=== PATIENT | female | born 1965 | race Caucasian/White ===

== ENCOUNTER 2017-08-25 22:02 | Inpatient (IN) | payer OTHER ==
[~2017-08-25] VITALS: Ht 162.6 cm; Wt 108.5 kg
[~2017-08-25 22:02] MED LIST: AMRIX30 MG PO; B-COMPLEX FOL400 MCG PO; Buspar PO; CALCIUM CITRAT250 MG PO; CANDESARTAN CIL16 MG PO; CRANBERRY500 MG PO; DELTASONE20 MG PO; Depakote PO; EFFEXOR XR150 MG PO; Effexor XR PO; Fioricet,Esgic,Repan PO; Flexeril PO; HYDROCODON-ACE1 EAC8 PO; MAGNESIUM400 M1 PO; METOPROLOL SUCC25 MG PO; MOVANTIK25 MG PO; MULTIVITAMIN1 EAC2 PO; OMEPRAZOLE40 MG PO; OxyCODONE PO; PERCOCET 10/1 TABLET PO; PERCOCET 5/31 TABLET PO; PERCODAN TABLE1 EACH PO; PRILOSEC40 MG PO; PROPRANOLOL HCL40 MG PO; PROVIGIL100 MG PO; Provigil PO; REGLAN10 MG PO; REGLAN5 MG PO; RELPAX20 MG PO; RELPAX40 MG PO; SKELAXIN800 MG PO; SUPER B-50 COM1 EACH PO; TIZANIDINE HCL4 M1 PO; TOPAMAX100 MG PO; TORADOL10 MG PO; TURMERIC 500 M1 EACH PO; Ultram PO; VITAMIN D250000 UNIT PO; ZOFRAN4 MG PO; ZYRTEC10 M3 PO; Zofran PO
[2017-08-26 07:02] VITALS: BP 102/55
[2017-08-26 15:01] VITALS: BP 134/79
[2017-08-26 19:24] VITALS: BP 128/61
[2017-08-26 23:41] VITALS: BP 97/51
[2017-08-27 04:29] VITALS: BP 103/53
[2017-08-27 07:37] VITALS: BP 120/63
[2017-08-27 10:57] VITALS: BP 94/44
[2017-08-27 15:36] VITALS: BP 111/57
[2017-08-27 19:28] VITALS: BP 108/59
[2017-08-27 23:34] VITALS: BP 113/56
[2017-08-28 07:59] VITALS: BP 131/56
[2017-08-28 15:53] VITALS: BP 120/62
[2017-08-29 00:06] VITALS: BP 107/55
[2017-08-29 07:54] VITALS: BP 117/56
[2017-08-29] MEDS ORDERED: GABAPENTIN300 MG PO (08:20)
== END 2017-08-29 14:15 | disposition home or self-care (01) | DRG 455 ==
LOC: ENRESERV 22:02 → 2SOUTH 08-26 05:51 → ENRESERV 08-26 13:22 → 3EAST 08-26 14:47 → 2SOUTH 08-26 15:42 → 3EAST 08-29 14:15
DX: M43.17 Spondylolisthesis, lumbosacral region (principal); M48.07 Spinal stenosis, lumbosacral region; M54.17 Radiculopathy, lumbosacral region; I10 Essential (primary) hypertension; G43.909 Migraine, unspecified, not intractable, without status migrainosus; M79.7 Fibromyalgia; K21.9 Gastro-esophageal reflux disease without esophagitis; K31.84 Gastroparesis; F17.210 Nicotine dependence, cigarettes, uncomplicated; E66.9 Obesity, unspecified; F41.9 Anxiety disorder, unspecified; F32.9 Major depressive disorder, single episode, unspecified; G89.29 Other chronic pain; M25.562 Pain in left knee; Z98.84 Bariatric surgery status; Z88.2 Allergy status to sulfonamides; Z88.6 Allergy status to analgesic agent; Z88.1 Allergy status to other antibiotic agents; Z68.36 Body mass index [BMI] 36.0-36.9, adult
CPT/HCPCS: 72100; 76000; 86850; 86900; 86901; J0330; J0461; J0690; J1100; J1170; J1580; J1885; J2250; J2405; J3010; J3480

== ENCOUNTER 2017-09-02 17:42 | Inpatient (IN) | payer OTHER ==
[~2017-09-02] VITALS: Ht 162.6 cm; Wt 116.9 kg
[~2017-09-02 17:42] MED LIST changes: +GABAPENTIN300 MG PO
[2017-09-02 19:39] LABS: HEMATOCRIT 30.4 % (36.0-46.0); MCH 32.1 PG (29.0-34.0); MCHC 33.9 G/DL (30.0-36.0); MCV 94.7 FL (83-99); RBC DIS.WIDTH-CV 12.7 % (11.8-14.6); RBC DIS.WIDTH-SD 44.4 % (39-53); WHITE BLOOD COUNT 10.6 K/uL (4.1-10.2)
[2017-09-02 19:41] LABS: HEMOGLOBIN 10.3 G/DL (11.9-15.5); PLATELET COUNT 403 K/uL (156-360); RED BLOOD COUNT 3.21 M/uL (3.80-5.20)
[2017-09-02 19:55] LABS: CHLORIDE 106 mEq/L (99-109); POTASSIUM 4.2 mEq/L (3.7-5.4); SODIUM 140 mEq/L (136-147)
[2017-09-02 19:56] LABS: GLUCOSE 93 mg/dL (70-99)
[2017-09-02 20:00] LABS: CREATININE 0.8 mg/dL (0.6-1.3); GFR ESTIMATE (CALCULATED) > 59 mL/min/
[2017-09-02 20:01] LABS: UREA NITROGEN (BUN) 7 mg/dL (9-23)
[2017-09-03] VITALS (8 sets, daily range): BP systolic 98–178; BP diastolic 58–79
[2017-09-03] MEDS ORDERED: VENLAFAXINE HCL75 M3 PO (01:20)
[2017-09-03] MEDS ORDERED: VENLAFAXINE HC150 M1 PO (01:22)
[2017-09-03] MEDS ORDERED: INDERAL80 MG PO (01:23)
[2017-09-03] MEDS ORDERED: ERGOCALCIF50000 UNIT PO (01:26)
[2017-09-03] MEDS ORDERED: TIZANIDINE HCL4 MG PO (01:28)
[2017-09-03] MEDS ORDERED: OXYCODONE-APAP1 EACH PO (01:29)
[2017-09-03] MEDS ORDERED: OMEPRAZOLE40 M1 PO (01:31)
[2017-09-03] MEDS ORDERED: GABAPENTIN100 MG PO (01:39)
[2017-09-03] MEDS ORDERED: CAMBIA50 MG PO (02:03)
[2017-09-04 03:39] VITALS: BP 122/68
[2017-09-04 05:58] LABS: BASOPHIL (%) 0.3 % (0-1); EOSINOPHIL (%) 3.4 % (0-5); EOSINOPHIL COUNT 0.3 K/uL (0-0.3); HEMATOCRIT 27.9 % (36.0-46.0); HEMOGLOBIN 9.2 G/DL (11.9-15.5); IMMATURE GRANULOCYTE (%) 0.3 % (0.0-0.7); LYMPHOCYTE (%) 30.8 % (15-42); MCH 32.4 PG (29.0-34.0); MCV 98.2 FL (83-99); MONOCYTE (%) 10.1 % (3-12); NEUTROPHIL (%) 55.1 % (45-76); NEUTROPHIL COUNT 5.3 K/uL (1.8-6.4); PLATELET COUNT 412 K/uL (156-360); RBC DIS.WIDTH-SD 46.7 % (39-53); RED BLOOD COUNT 2.84 M/uL (3.80-5.20); WHITE BLOOD COUNT 9.6 K/uL (4.1-10.2)
[2017-09-04 06:17] LABS: INTER. NORMALIZED RATIO 1.2
[2017-09-04 06:27] LABS: ALBUMIN 2.8 G/DL (3.2-4.8); ALKALINE PHOSPHATASE 176 IU/L (3-129); ALT (GPT) 21 IU/L (3-49); AST (GOT) 29 IU/L (2-34); CHLORIDE 109 MEQ/L (99-109); CREATININE 0.8 MG/DL (0.6-1.3); GFR ESTIMATE (CALCULATED) > 59 mL/min/; GLUCOSE 91 mg/dL (70-99); SODIUM 144 MEQ/L (136-147); TOTAL BILIRUBIN 0.4 MG/DL (0.0-1.0); TOTAL PROTEIN 5.3 G/DL (6.4-8.3); UREA NITROGEN (BUN) 7 mg/dL (9-23)
[2017-09-04 06:28] LABS: POTASSIUM 5.2 MEQ/L (3.7-5.4)
[2017-09-04 08:00] VITALS: BP 148/69
[2017-09-04 11:50] VITALS: BP 95/49
[2017-09-04 16:00] VITALS: BP 103/56
[2017-09-04 19:47] VITALS: BP 128/69
[2017-09-04 23:57] VITALS: BP 128/63
[2017-09-05 03:26] VITALS: BP 177/80
[2017-09-05 05:37] LABS: BASOPHIL (%) 0.3 % (0-1); EOSINOPHIL COUNT 0.3 K/uL (0-0.3); HEMATOCRIT 27.3 % (36.0-46.0); IMMATURE GRANULOCYTE (%) 0.3 % (0.0-0.7); LYMPHOCYTE (%) 25.3 % (15-42); LYMPHOCYTE COUNT 2.2 K/uL (1.0-2.8); MCH 31.9 PG (29.0-34.0); MCV 96.8 FL (83-99); MONOCYTE (%) 10.4 % (3-12); MONOCYTE COUNT 0.9 K/uL (0-0.8); NEUTROPHIL (%) 60.7 % (45-76); NEUTROPHIL COUNT 5.3 K/uL (1.8-6.4); PLATELET COUNT 427 K/uL (156-360); RBC DIS.WIDTH-CV 12.9 % (11.8-14.6); RBC DIS.WIDTH-SD 45.6 % (39-53); RED BLOOD COUNT 2.82 M/uL (3.80-5.20); WHITE BLOOD COUNT 8.7 K/uL (4.1-10.2)
[2017-09-05 05:57] LABS: CHLORIDE 106 MEQ/L (99-109); CREATININE 0.7 MG/DL (0.6-1.3); GFR ESTIMATE (CALCULATED) > 59 mL/min/; GLUCOSE 91 mg/dL (70-99); SODIUM 141 MEQ/L (136-147); UREA NITROGEN (BUN) 7 mg/dL (9-23)
[2017-09-05 05:58] LABS: POTASSIUM 3.9 MEQ/L (3.7-5.4)
[2017-09-05 08:23] VITALS: BP 130/90
[2017-09-05 10:55] VITALS: BP 147/83
[2017-09-05 15:50] VITALS: BP 133/67
[2017-09-05 20:05] VITALS: BP 143/75
[2017-09-06 00:32] VITALS: BP 133/61
[2017-09-06 03:46] VITALS: BP 94/55
[2017-09-06 06:34] LABS: BASOPHIL (%) 0.4 % (0-1); EOSINOPHIL (%) 2.8 % (0-5); EOSINOPHIL COUNT 0.3 K/uL (0-0.3); HEMATOCRIT 27.9 % (36.0-46.0); HEMOGLOBIN 9.2 G/DL (11.9-15.5); IMMATURE GRANULOCYTE (%) 0.6 % (0.0-0.7); LYMPHOCYTE (%) 31.1 % (15-42); LYMPHOCYTE COUNT 3.2 K/uL (1.0-2.8); MCH 31.5 PG (29.0-34.0); MCV 95.5 FL (83-99); MONOCYTE (%) 10.7 % (3-12); MONOCYTE COUNT 1.1 K/uL (0-0.8); NEUTROPHIL (%) 54.4 % (45-76); NEUTROPHIL COUNT 5.5 K/uL (1.8-6.4); PLATELET COUNT 412 K/uL (156-360); RBC DIS.WIDTH-CV 12.8 % (11.8-14.6); RBC DIS.WIDTH-SD 44.5 % (39-53); RED BLOOD COUNT 2.92 M/uL (3.80-5.20); WHITE BLOOD COUNT 10.1 K/uL (4.1-10.2)
[2017-09-06 06:53] LABS: CHLORIDE 107 MEQ/L (99-109); CREATININE 0.8 MG/DL (0.6-1.3); GFR ESTIMATE (CALCULATED) > 59 mL/min/; GLUCOSE 86 mg/dL (70-99); POTASSIUM 4.4 MEQ/L (3.7-5.4); SODIUM 142 MEQ/L (136-147); UREA NITROGEN (BUN) 8 mg/dL (9-23)
[2017-09-06 08:01] VITALS: BP 115/63
[2017-09-06 11:52] VITALS: BP 129/61
[2017-09-06] MEDS ORDERED: CLEOCIN150 MG PO ×3 (14:58→15:12)
[2017-09-06] MEDS ORDERED: OXYCODONE HCL5 MG PO ×2 (14:58→15:07)
[2017-09-06] MEDS ORDERED: DOCUSATE SODIU100 MG PO ×2 (14:58→15:07)
[2017-09-06] MEDS ORDERED: GABAPENTIN300 MG PO ×2 (14:58→15:07)
== END 2017-09-06 16:38 | disposition home or self-care (01) | DRG 253 ==
LOC: EME 17:42 → EDOF 22:48 → 3EAST 22:48 → ENRESERV 22:49 → 3EAST 09-03 00:24
PROVIDERS: Physician Assistant; Student in an Organized Health Care Education/Training Program
PROC: 06H03DZ Insertion of Intraluminal Device into Inferior Vena Cava, Percutaneous Approach (ICD-10-PCS; principal; 2017-09-05)
DX: T81.72XA Complication of vein following a procedure, not elsewhere classified, initial encounter (principal); Y84.8 Other medical procedures as the cause of abnormal reaction of the patient, or of later complication, without mention of misadventure at the time of the procedure; I82.442 Acute embolism and thrombosis of left tibial vein; I82.4Z2 Acute embolism and thrombosis of unspecified deep veins of left distal lower extremity; G89.4 Chronic pain syndrome; I10 Essential (primary) hypertension; I25.10 Atherosclerotic heart disease of native coronary artery without angina pectoris; K59.03 Drug induced constipation; T40.2X5A Adverse effect of other opioids, initial encounter; M79.7 Fibromyalgia; G43.709 Chronic migraine without aura, not intractable, without status migrainosus; E66.01 Morbid (severe) obesity due to excess calories; Z68.41 Body mass index [BMI] 40.0-44.9, adult; M54.10 Radiculopathy, site unspecified; F41.9 Anxiety disorder, unspecified; H02.402 Unspecified ptosis of left eyelid; D64.9 Anemia, unspecified; F32.9 Major depressive disorder, single episode, unspecified; M54.12 Radiculopathy, cervical region; M54.30 Sciatica, unspecified side; M54.81 Occipital neuralgia; R60.9 Edema, unspecified; F17.200 Nicotine dependence, unspecified, uncomplicated; Z80.3 Family history of malignant neoplasm of breast; Z80.52 Family history of malignant neoplasm of bladder; Z82.49 Family history of ischemic heart disease and other diseases of the circulatory system; Z86.61 Personal history of infections of the central nervous system; Z86.711 Personal history of pulmonary embolism; Z86.718 Personal history of other venous thrombosis and embolism; Z87.11 Personal history of peptic ulcer disease; Z98.1 Arthrodesis status; Z98.84 Bariatric surgery status
CPT/HCPCS: 80048; 80053; 81003; 85025; 85027; 85610; 87086; 93005; 93970; 94799; 99281; 99285; C1769; C1894; J1170; J1650; J1885; J2060; J2250; J2270; J2405; J3010; J7050

== ENCOUNTER 2017-10-02 06:35 | Inpatient (IN) | payer OTHER ==
[~2017-10-02] VITALS: Ht 162.6 cm; Wt 105.2 kg
[~2017-10-02 06:35] MED LIST changes: +CALCIUM CITRAT1 EA14 PO; -CALCIUM CITRAT250 MG PO; +CAMBIA50 MG PO; +CLEOCIN150 MG PO; +DOCUSATE SODIU100 MG PO; +ERGOCALCIF50000 UNIT PO; +GABAPENTIN100 MG PO; +INDERAL80 MG PO; +MAGNESIUM OXID500 MG PO; -MAGNESIUM400 M1 PO; +MULTI VITAMIN1 EACH PO; -MULTIVITAMIN1 EAC2 PO; +OMEPRAZOLE40 M1 PO; +OXYCODONE HCL5 MG PO; +OXYCODONE-APAP1 EACH PO; -PRILOSEC40 MG PO; +TIZANIDINE HCL4 MG PO; +VENLAFAXINE HC150 M1 PO; +VENLAFAXINE HCL75 M3 PO
[2017-10-02 07:37] LABS: APPEARANCE SL.HAZY ((CLEAR)); BILIRUBIN NEGATIVE; BLOOD LARGE; COLOR YELLOW ((YELLOW)); GLUCOSE (STRIP) NEGATIVE; KETONES NEGATIVE; LEUKOCYTES TRACE; NITRITE NEGATIVE; PROTEIN (STRIP) 100; SPECIFIC GRAVITY 1.012 (1.000-1.030); UROBILINOGEN 0.2 MG/DL (0.2-1.0)
[2017-10-02 07:39] LABS: HEMATOCRIT 37.8 % (36.0-46.0); MCH 31.4 PG (29.0-34.0); MCHC 33.9 G/DL (30.0-36.0); MCV 92.9 FL (83-99); RBC DIS.WIDTH-CV 13.1 % (11.8-14.6); RBC DIS.WIDTH-SD 44.4 % (39-53); WHITE BLOOD COUNT 11.9 K/uL (4.1-10.2)
[2017-10-02 07:50] LABS: ALBUMIN 3.8 G/DL (3.2-4.8); CHLORIDE 107 MEQ/L (99-109); POTASSIUM 3.6 MEQ/L (3.7-5.4); SODIUM 140 MEQ/L (136-147); TOTAL BILIRUBIN 0.5 MG/DL (0.0-1.0)
[2017-10-02 07:55] LABS: ALKALINE PHOSPHATASE 156 IU/L (3-129); ALT (GPT) 16 IU/L (3-49); AST (GOT) 22 IU/L (2-34); CREATININE 0.8 MG/DL (0.6-1.3); GFR ESTIMATE (CALCULATED) > 59 mL/min/; GLUCOSE 100 mg/dL (70-99); LIPASE 16 U/L (1.0-51.0); TOTAL PROTEIN 6.8 G/DL (6.4-8.3); UREA NITROGEN (BUN) 8 mg/dL (9-23)
[2017-10-02 08:03] LABS: BACTERIA RARE /HPF; EPITHELIAL CELLS RARE /HPF; MUCUS TRACE /LPF; RED BLOOD CELLS TNTC /HPF (0-5); UCUL ADDED? YES; WHITE BLOOD CELLS 0-5 /HPF (0-5)
[2017-10-02 08:16] LABS: PLAT.SUFFICIENCY ADEQUATE
[2017-10-02 08:18] LABS: HEMOGLOBIN 12.8 G/DL (11.9-15.5); PLATELET COUNT 284 K/uL (156-360); RED BLOOD COUNT 4.07 M/uL (3.80-5.20)
[2017-10-02 09:14] LABS: INTER. NORMALIZED RATIO 9.8
[2017-10-02] MEDS ORDERED: OXYCODONE HCL15 MG PO (10:32)
[2017-10-02] MEDS ORDERED: WARFARIN SODIUM5 MG PO (10:32)
[2017-10-02] MEDS ORDERED: SUPER B COMPL400 MCG PO (10:36)
[2017-10-02 12:23] LABS: STOOL OCCULT BLD 1ST SPECIMEN POSITIVE
[2017-10-02 12:42] LABS: TROP-I INTERPRETATION NEGATIVE; TROPONIN-I < 0.01 ng/mL (0.0-0.30)
[2017-10-02 16:14] VITALS: BP 141/83
[2017-10-02 19:45] VITALS: BP 126/66
[2017-10-02 23:27] VITALS: BP 101/52
[2017-10-03 03:47] VITALS: BP 100/55
[2017-10-03 06:42] LABS: HEMOGLOBIN 11.3 G/DL (11.9-15.5); MCH 31.7 PG (29.0-34.0); MCHC 33.2 G/DL (30.0-36.0); MCV 95.5 FL (83-99); PLATELET COUNT 244 K/uL (156-360); RBC DIS.WIDTH-CV 13.4 % (11.8-14.6); RBC DIS.WIDTH-SD 46.5 % (39-53); RED BLOOD COUNT 3.56 M/uL (3.80-5.20); WHITE BLOOD COUNT 7.7 K/uL (4.1-10.2)
[2017-10-03 08:00] VITALS: BP 130/60
[2017-10-03 10:41] LABS: CHLORIDE 108 MEQ/L (99-109); CREATININE 0.9 MG/DL (0.6-1.3); GFR ESTIMATE (CALCULATED) > 59 mL/min/; GLUCOSE 93 mg/dL (70-99); POTASSIUM 3.8 MEQ/L (3.7-5.4); SODIUM 142 MEQ/L (136-147); UREA NITROGEN (BUN) 6 mg/dL (9-23)
[2017-10-03 10:58] LABS: INTER. NORMALIZED RATIO 5.5
[2017-10-03 16:00] VITALS: BP 134/78
[2017-10-03 19:15] VITALS: BP 142/72
[2017-10-03 23:20] VITALS: BP 128/68
[2017-10-04 07:15] VITALS: BP 135/65
[2017-10-04 10:48] VITALS: BP 115/59
[2017-10-04 10:50] VITALS: BP 112/58
[2017-10-04] MEDS ORDERED: SUCRALFATE1 GM/10 ML PO (12:52)
[2017-10-04] MEDS ORDERED: PANTOPRAZOLE SO40 MG PO (12:52)
== END 2017-10-04 13:53 | disposition home or self-care (01) | DRG 948 ==
LOC: EME 06:35 → CANRESERV 11:14 → ENRESERV 11:14 → 2EAST 11:23 → EDOF 11:23 → ENRESERV 11:24 → CANRESERV 13:49 → ENRESERV 14:07 → 2EAST 15:58
PROVIDERS: Hospitalist; Physician Assistant; Physician Assistant Medical
DX: R79.1 Abnormal coagulation profile (principal); R31.29 Other microscopic hematuria; R19.5 Other fecal abnormalities; T45.515A Adverse effect of anticoagulants, initial encounter; K29.60 Other gastritis without bleeding; I10 Essential (primary) hypertension; I25.10 Atherosclerotic heart disease of native coronary artery without angina pectoris; E11.43 Type 2 diabetes mellitus with diabetic autonomic (poly)neuropathy; K31.84 Gastroparesis; G89.4 Chronic pain syndrome; M79.7 Fibromyalgia; F32.9 Major depressive disorder, single episode, unspecified; G43.909 Migraine, unspecified, not intractable, without status migrainosus; F17.210 Nicotine dependence, cigarettes, uncomplicated; E66.9 Obesity, unspecified; Z68.39 Body mass index [BMI] 39.0-39.9, adult; Z91.19 Patient's noncompliance with other medical treatment and regimen; Z79.01 Long term (current) use of anticoagulants; Z86.711 Personal history of pulmonary embolism; Z86.718 Personal history of other venous thrombosis and embolism; Z87.11 Personal history of peptic ulcer disease; Z98.84 Bariatric surgery status; Z98.1 Arthrodesis status
CPT/HCPCS: 74177; 74241; 80048; 80053; 81003; 82272; 83690; 84484; 85027; 85610; 87086; 99281; 99285; C9113; J2270; J2405; J2765; J3010; J7030; S0028